=== PATIENT | female | born 1940 | race Caucasian/White ===

== ENCOUNTER 2020-10-10 10:08 | Observation (INO) ==
--- NOTE | 2020-09-02 09:03 | PAT Medication Instructions ---
Medication Instructions Date of Service September 02, 2020 Home Medications calcium carbonate-vitamin D3 [Caltrate 600 plus D] 1 tab PO QAM [id number] [Refresh Optive Alberto-3 (PF)] 1 drp OPHTHALMIC (EYE) TID PRN cyclosporine [Restasis] 1 drp OPHTHALMIC (EYE) Q12H diltiazem HCl [Cartia XT] 120 mg PO QAM docusate sodium [Colace] 100 mg PO QAM PRN Centrum Silver 1 tab PO QAM omeprazole 40 mg PO BID polyethylene glycol 3350 [Miralax] 17 g PO QAM Al hyd-Mg tr-alg ac-sod bicarb [Gaviscon] 1 tab PO UD PRN acetaminophen [Tylenol Extra Strength] 500 mg PO Q6H PRN aspirin [Aspir-81] 81 mg PO QAM peg 400-propylene glycol (PF) [Systane (PF)] 1 drp OPHTHALMIC (EYE) BID PRN sodium chloride [Maggie 128] 1 applic OPHTHALMIC (EYE) HS DO NOT take the morning of surgery calcium carbonate-vitamin D3 [Caltrate 600 plus D] 1 tab PO QAM docusate sodium [Colace] 100 mg PO QAM PRN Centrum Silver 1 tab PO QAM polyethylene glycol 3350 [Miralax] 17 g PO QAM Al hyd-Mg tr-alg ac-sod bicarb [Gaviscon] 1 tab PO UD PRN Take morning of surgery With a small sip of water, OTHERWISE NOTHING TO EAT OR DRINK AFTER MIDNIGHT: [id number] [Refresh Optive Alberto-3 (PF)] 1 drp OPHTHALMIC (EYE) TID PRN (if needed) cyclosporine [Restasis] 1 drp OPHTHALMIC (EYE) Q12H diltiazem HCl [Cartia XT] 120 mg PO QAM omeprazole 40 mg PO BID acetaminophen [Tylenol Extra Strength] 500 mg PO Q6H PRN (okay to take up to 4 hours prior to surgery if needed) aspirin [Aspir-81] 81 mg PO QAM (take as normal unless told otherwise by surgeon) Take evening before surgery [id number]-eoq-shpi65-PF [Refresh Optive Alberto-3 (PF)] 1 drp OPHTHALMIC (EYE) TID PRN (if needed) cyclosporine [Restasis] 1 drp OPHTHALMIC (EYE) Q12H docusate sodium [Colace] 100 mg PO QAM PRN (if needed) omeprazole 40 mg PO BID Al hyd-Mg tr-alg ac-sod bicarb [Gaviscon] 1 tab PO UD PRN (if needed) acetaminophen [Tylenol Extra Strength] 500 mg PO Q6H PRN (if needed) peg 400-propylene glycol (PF) [Systane (PF)] 1 drp OPHTHALMIC (EYE) BID PRN (if needed) sodium chloride [Maggie 128] 1 applic OPHTHALMIC (EYE) HS Other Notes If you have any questions please call us at [phone] or [phone] or [phone] or [phone]
--- NOTE | 2020-09-05 14:22 | Anesthesiology Consultation ---
Date of Service September 05, 2020 Assessment & Plan (1) Encounter for pre-operative examination: - COVID screening: Per assessment on 09/05: Travel screen negative, no known COVID-19 positive contacts or current COVID-19 related symptoms. Patient vaccinated. Surgeon arranging preop COVID testing. Awaiting results. - Hx glidescope intubation: Left TSA (01/17/17): Glidescope#3, ETT 7.0 + PNB at [facility], [place] Chart Review Chart Review: Acceptable Risk for Surgery (pending surgeon-ordered UA) and Patient seen in Pre Admission Testing Teaching & Discussion Pre-Anesthesia Teaching/Discussion Notes: Instructed NPO after midnight before surgery,except medications with 15 cc of water. Medication instructions provided according to the PAT guidelines. History Surgery Operation Date: 10/10/20 09:10 Proposed Procedures p Left Total Knee Arthroplasty - Raphael Renner MD Height/Weight Height: 5 ft 7 in Weight: 75.6 kg Allergies Allergy/AdvReac Type Severity Reaction Status Date / Time No Known Allergies Allergy Unverified 08/16/20 14:20 Medications Home Medications Medication Instructions Recorded Confirmed Last Taken calcium carbonate-vitamin D3 1 tab PO QAM 01/25/20 08/16/20 Unknown [Caltrate 600 plus D] [id number]-[id number]-PF 1 drp OPHTHALMIC (EYE) TID PRN 01/25/20 08/16/20 Unknown [Refresh Optive Alberto-3 (PF)] cyclosporine [Restasis] 1 drp OPHTHALMIC (EYE) Q12H 01/25/20 08/16/20 Unknown diltiazem HCl [Cartia XT] 120 mg PO QAM 01/25/20 08/16/20 Unknown docusate sodium [Colace] 100 mg PO QAM PRN 01/25/20 08/16/20 Unknown bxxppwbkcilh-yzbzrzfb-bcwzcu 1 tab PO QAM 01/25/20 08/16/20 Unknown [Centrum Silver] omeprazole 40 mg PO BID 01/25/20 08/16/20 Unknown polyethylene glycol 3350 [Miralax] 17 g PO QAM 01/25/20 08/16/20 Unknown Al hyd-Mg tr-alg ac-sod bicarb 1 tab PO UD PRN 08/16/20 08/16/20 Unknown [Gaviscon] acetaminophen [Tylenol Extra 500 mg PO Q6H PRN 08/16/20 08/16/20 Unknown Strength] aspirin [Aspir-81] 81 mg PO QAM 08/16/20 08/16/20 Unknown peg 400-propylene glycol (PF) 1 drp OPHTHALMIC (EYE) BID PRN 08/16/20 08/16/20 Unknown [Systane (PF)] sodium chloride [Maggie 128] 1 applic OPHTHALMIC (EYE) HS 08/16/20 08/16/20 Unknown Past Medical History Medical History (Updated 09/05/20 @ 14:37 by Marisol Sanchez) Borderline hypertension Dry eye GERD (gastroesophageal reflux disease) controlled History of malignant melanoma of eye Left eye Hx of esophageal spasm IBS (irritable bowel syndrome) Osteoarthritis Varicose veins of both lower extremities s/p injections Exercise / Class Metabolic Activity III < 4 Walking/Shop/Light housework Past Family History Family History Father Colon cancer Other No family history of adverse response to anesthesia Past Surgical History Surgical History History of appendectomy History of breast biopsy Benign History of cardiac cath 2017 (for chest pain evaluation) > no stents History of colonoscopy History of esophagogastroduodenoscopy (EGD) History of hysterectomy History of left shoulder replacement Left TSA (01/17/17): Glidescope#3, ETT 7.0 + PNB at [facility], [place] History of non-cataract eye surgery left eye melanoma removal History of right shoulder replacement History of tonsillectomy Past Anesthesia History Difficult Airway (Left TSA (01/17/17): Glidescope#3, ETT 7.0 + PNB at [facility], [place]) Social History Smoking Status: Never smoker Do You Dip or Chew Tobacco: No Hx Alcohol Use: No Hx Substance Use: No substance use type: does not use Review of Systems No snoring. Patient denies chest pain, shortness of breath, fever, chills, cough, wheezing, palpitations. Physical Exam Vital Signs VITALS BP 133/75 P 70 TEMP SP02 94%RA RESP 18 PHYSICAL Full cervical extension range of motion. Full TMJ range of motion. TMD 2 finger breaths (small chin) Mallampati Score 3 Dentition: intact, +crown (molars) Lungs: clear throughout to auscultation Cardiac: regular rate and rhythm, no murmurs noted Spine: kyphosis Carotid arteries: negative bruit Extremities: no edema Lab Results Anesthesia Preop Results Results Anesthesia Widget: WBC 3.65 K/uL (4.8-10.8) L 09/05/20 Hgb 12.8 g/dL (12.0-16.0) 09/05/20 Hct 39.3 % (37-47) 09/05/20 Plt 191 K/uL (130-400) 09/05/20 Na 139 mmol/L (136-145) 09/05/20 K 4.2 mmol/L (3.5-5.1) 09/05/20 Cl 106 mmol/L (98-107) 09/05/20 CO2 28 mmol/L (21-32) 09/05/20 BUN 19 mg/dl (7-18) H 09/05/20 Creat 0.72 mg/dl (0.6-1.2) 09/05/20 Glucose Level 159 mg/dl (70-99) H 09/05/20 PT 10.0 Seconds (9.0-12.0) 09/05/20 PTT 26.0 Seconds (21.0-31.0) 09/05/20 INR 1.0 (0.9-1.1) 09/05/20 HA1c 6.0 % (4.5-5.6) H 09/05/20 Blood Type A Positive 09/05/20 Antibody Screen NEGATIVE 09/05/20 Lab Comments: Low WBC > report to be forwarded to PCP for continuity of care Testing Electrocardiogram Date: 09/05/20 Findings: + NSR @ (66) Chest X-Ray Date: 09/05/20 FINDINGS: No pneumothorax. No pleural effusion. No large infiltrates or consolidative lesions are seen. Cardiomediastinal silhouette is within normal limits in size. No significant pulmonary vascular congestion.. Aorta is calcified. Osseous structures: Osteopenia. Degenerative changes of the spine. Bilateral prosthetic shoulder joints are new since prior study. IMPRESSION: No acute pulmonary process. Echocardiogram Date: 06/04/15 EF 60%. No regional wall motion abnormality. Mild MR. RVSP 30 mmHg. No obvious cardiac source of embolus seen. Cardiac Catheterization Date: 12/23/17 Mid LAD 20%, left circumflex distal 20%. The patient's troponin elevation could be secondary to a superficial plaque erosion; there does not appear to be any significant stenosis, which would merit intervention.
--- NOTE | 2020-10-07 22:32 | History & Physical Report ---
Date of Service October 07, 2020 Assessment & Plan (1) Primary osteoarthritis of left knee: Plan: Treatment options discussed with patient. She has failed conservative measures as above. She would like to proceed with surgical intervention. Risks, benefits and alternatives to surgery including but not limited to infection, DVT, pain, stiffness, need for revision surgery, damage to blood vessels, damage to nerves, PE, , were discussed with the patient and they wish to proceed. Plan on left total knee arthroplasty on 10/10/20 at [facility]. Will plan on ASA 81mg BID x 1 mo post op for DVT prophylaxis as well as outpatient PT post discharge. All questions answered. She will follow up post operatively. History of Present Illness Chief Complaint: Left knee pain Primary Care Provider: NO PCP 80 year old female with PMHx significant for GERD, HTN, melanoma, IBS who presents with ongoing left knee pain. Pain interfering with her daily and leisure activities. She has failed conservative measures including anti- inflammatory medications, injections. She would like to proceed with knee replacement. Patient denies headaches, sweats, fevers, chills, double vision, blurred vision, cough, sore throat, dysphagia, chest pain, sob, wheezing, n/v/d/c, numbness, tingling, fatigue, urinary symptoms, mood disorders. ROS posi tive for left knee pain and stiffness. Allergies Allergy/AdvReac Type Severity Reaction Status Date / Time No Known Allergies Allergy Unverified 08/16/20 14:20 Home Medications Medication Instructions Recorded Confirmed Type calcium carbonate 600 mg(1,500 1 tab PO QAM 01/25/20 08/16/20 History mg)-vitamin D3 800 unit chewable tablet (Caltrate 600 plus D) carboxymethyl 0.5 %-glycerin 1 1 drp OPHTHALMIC (EYE) TID PRN 01/25/20 08/16/20 History %-polysorb 80 0.5 %-PF eye dropperette (Refresh Optive Alberto-3 (PF)) cyclosporine 0.05 % eye drops in a 1 drp OPHTHALMIC (EYE) Q12H 01/25/20 08/16/20 History dropperette (Restasis) diltiazem HCl 120 mg 120 mg PO QAM 01/25/20 08/16/20 History capsule,extended release 24 hr (Cartia XT) docusate sodium 100 mg capsule 100 mg PO QAM PRN 01/25/20 08/16/20 History (Colace) echqvnnkmxjh-qjzehhdk-vrunlo tablet 1 tab PO QAM 01/25/20 08/16/20 History omeprazole 40 mg capsule,delayed 40 mg PO BID 01/25/20 08/16/20 History release polyethylene glycol 3350 17 gram 17 g PO QAM 01/25/20 08/16/20 History oral powder packet (Miralax) Al hyd-Mg tr-alg ac-sod bicarb 80 1 tab PO UD PRN 08/16/20 08/16/20 History mg-14.2 mg chewable tablet (Gaviscon) acetaminophen 500 mg capsule 500 mg PO Q6H PRN 08/16/20 08/16/20 History aspirin 81 mg tablet,delayed 81 mg PO QAM 08/16/20 08/16/20 History release peg 400-propylene glycol (PF) 0.4 1 drp OPHTHALMIC (EYE) BID PRN 08/16/20 08/16/20 History %-0.3 % eye drops in a dropperette (Systane (PF)) sodium chloride 5 % eye ointment 1 applic OPHTHALMIC (EYE) HS 08/16/20 08/16/20 History (Maggie 128) Past Med/Surg History Medical History (Updated 10/07/20 @ 22:33 by Iam Mendez) Borderline hypertension Dry eye GERD (gastroesophageal reflux disease) controlled History of malignant melanoma of eye Left eye Hx of esophageal spasm IBS (irritable bowel syndrome) Osteoarthritis Varicose veins of both lower extremities s/p injections Surgical History History of appendectomy History of breast biopsy Benign History of cardiac cath 2017 (for chest pain evaluation) > no stents History of colonoscopy History of esophagogastroduodenoscopy (EGD) History of hysterectomy History of left shoulder replacement Left TSA (01/17/17): Glidescope#3, ETT 7.0 + PNB at [facility] History of non-cataract eye surgery left eye melanoma removal History of right shoulder replacement History of tonsillectomy Family History Father Colon cancer Other No family history of adverse response to anesthesia Social History (Updated 08/16/20 @ 14:45 by Naomi Aguilar RN) Smoking Status: Never smoker Second Hand Exposure: Yes (FATHER SMOKED/SPOUSE SMOKED); Hx Alcohol Use: No Hx Substance Use: No Preferred Language: Ukrainian Communication Ability: Effective Tax Services Intern Required: No Beliefs That Will Affect Care: None Current Living Situation: Alone current occupational status: retired Feels Safe at Home: Yes Assistive Devices: Glasses Review of Systems All systems reviewed & are unremarkable except as noted in HPI & below Physical Exam Constitutional: well developed and well nourished; no acute distress Eyes: PERRL, conjunctivae normal, anicteric sclerae ENMT: external ear and nose normal, oropharynx normal Neck: trachea midline, no thyromegaly Respiratory: normal respiratory effort, lungs clear to auscultation Cardiovascular: RRR, no murmur, no edema Musculoskeletal: Left knee: ROM 15-100 degrees. Varus alignment. Tenderness medial joint line, mild effusion. Moderate crepitation. Stable to valgus and varus stress, positive Yajaira's. Skin: no rashes, warm and dry Neurologic: patellar DTR's 2+ bilat, sensation intact Psychiatric: A+Ox3, euthymic affect Results & Data ([facility]) Diagnostic Findings Left knee radiographs: Tricompartmental degenerative changes with severe medial compartment OA, bone on bone medial compartment. Periarticular osteophyte formation and subchondral sclerosis.
[~2020-10-10 10:08] MED LIST: ACETAMINOPHEN 500 MG TAB PO SCH; BUPIVACAINE 0.5 % 5 MG/1 ML PF 10ML VIAL ONE; CeleBREX 200 MG CAP PO SCH; EPINEPHrine INJ 1 MG/ML AMP ONE; FAMOTIDINE 20 MG TAB PO SCH; GABAPENTIN 300 MG CAP PO SCH; LR 500ML BOLUS, THEN 15ML/HR IV SCH; METOCLOPRAMIDE HCL 10 MG TABLET PO SCH; ROPIVACAINE 0.5% 5 MG/ML 30 ML VIAL ONE; ROPIVACAINE 0.5% HCL/PF 150 MG, BUPIVACAINE 0.75% MPF 20 ML, EPINEPHrine 30MG/30ML (OR ... INSTIL SCH; TRANEXAMIC ACID 1,000 MG **IV Intra-op IV SCH; TRANEXAMIC ACID 1,000 MG **IV Pre-op IV SCH; ceFAZolin 1000MG 1,000 MG/7.5 ML SYR IV SCH; dexAMETHasone 4 MG TAB PO SCH
[2020-10-10] MEDS ORDERED: MEPERIDINE HCL 25 MG/ML CARP/VIAL IV PRN (10:22)
[2020-10-10] MEDS ORDERED: fentaNYL citrate 100 MCG/2 ML VIAL IV PRN (10:22)
[2020-10-10] MEDS ORDERED: ONDANSETRON INJ 2 MG/ML 2 ML VIAL IV PRN ×2 (10:22→17:34)
[2020-10-10] MEDS ORDERED: PHENYLEPHRINE 100MCG/ML 5ML SYR IV PRN (10:22)
[2020-10-10] MEDS ORDERED: ATROPINE SULFATE 0.1 MG/ML 10ML SYR IV PRN (10:22)
[2020-10-10] MEDS ORDERED: LABETALOL HCL IV 5 MG/ML 20ML IV PRN (10:22)
[2020-10-10] MEDS ORDERED: HYDROmorphone INJ 1 MG/ML SYRINGE IV PRN (10:22)
[2020-10-10] MEDS ORDERED: ePHEDrine sulfate 50 MG/ML AMP IV PRN (10:22)
--- NOTE | 2020-10-10 11:27 | History & Physical Bridge Note ---
Date of Service October 10, 2020 History & Physical Bridge Note I have examined the patient, reviewed the History & Physical and in the interval since the performance of the History & Physical I have noted the following changes of clinical significance: no changes noted
[2020-10-10] MEDS ORDERED: ORTHO JOINT ANESTHETIC ONE (12:41)
[2020-10-10] MEDS ORDERED: LIDOCAINE 2% 2 ML VIAL/AMP(20MG/ML) INFIL ONE (13:03)
[2020-10-10] MEDS ORDERED: MIDAZOLAM HCL 1 MG/ML 2ML VIAL ONE (13:03)
[2020-10-10] MEDS ORDERED: PROPOFOL IV EMULSION 10 MG/ML 20 ML VIAL IV ONE (13:03)
[2020-10-10] MEDS ORDERED: BUPIVACAINE 0.25% 30 ML VIAL ONE (13:26)
[2020-10-10] MEDS ORDERED: PHENYLEPHRINE 100MCG/ML 5ML SYR ONE (14:57)
[2020-10-10] MEDS ORDERED: KETAMINE 50 MG/5 ML SYRINGE ONE (14:57)
[2020-10-10] MEDS ORDERED: GLYCOPYRROLATE 0.2 MG/ML VIAL ONE (14:57)
--- NOTE | 2020-10-10 16:19 | Operative Report ---
Post Operative Report Pre & Post Diagnosis Operation Date: 10/10/20 12:35 Pre-Op Diagnosis: Unilateral Primary Osteoarthritis, Left Knee Post-Op Diagnosis: Unilateral Primary Osteoarthritis, Left Knee I identified the patient and participated in the time-out.: Yes Procedure Operation Date: 10/10/20 12:35 Actual Procedures p Left Total Knee Arthroplasty(Left) - Raphael Renner MD Surgeon Raphael Renner MD Deckhand Sponge Boat Rolando LIU Estimated Blood Loss 5 Findings Consistent with Post-Op Diagnosis Specimens Bone cuts Drains 2 Hemovac Anesthesia Type MAC Spinal Regional Complications None Disposition Disposition: Recovery Room Indications 80-year-old female with severe bilateral knee osteoarthritis left greater than right varus knees arpu-gb-igib medial compartment moderate patellofemoral OA left knee Description of Procedure Patient was taken to the operating room placed supine on the operating table and anesthetized under spinal MAC regional anesthesia. Exam under anesthesia demonstrated range of motion of 15 through 100 degrees varus knee no pseudolaxity no instability. A pneumatic tourniquet was placed about the thigh of the left lower extremity. The left lower extremity was prepped and draped in usual fashion. The leg was elevated exsanguinated with an Esmarch bandage and the pneumatic was raised to 300 mm mercury. An anterior incision was made across the left knee. The skin was incised longitudinally subcutaneous flaps were elevated and an incision was made through the medial retinaculum extending up into the mid third of the quadriceps tendon and extended down to the medial tibial tubercle. Intra-articular findings demonstrated medial compartment and patellofemoral osteoarthritis [id number] medial compartment tricompartmental osteophytes the odd facet medial side was down to bone and circumferential osteophytes around the patella. The knee was exposed by excising the infrapatellar fat pad, excising the meniscal remnants and anterior cruciate ligament. Any inflamed synovial tissue was resected. The fat pad over the anterior femur was resected for placement of the component in that area. The lateral synovial bands were release. The femur was exposed. The custom femoral cutting block was pinned in position. The distal femoral cutting block was applied. The distal femoral cut was made with the oscillating saw. The size 9, 4-in-1 cutting block was placed. The anterior and posterior chamfer cuts were made. The knee was extended and a subperiosteal peel lateral release was performed around the patella. The patella width was measured and width was reproduced using freehand cut technique. The 35 x 9 millimeter symmetrical patella was used. 3 drill holes are made for the pegs. The tibia was exposed. A custom tibial cutting block was positioned however was not satisfied with the alignment and I used an external tibial cutting guide placing a perpendicular to the long axis of the tibia and placing the appropriate amount of posterior slope and then and the proximal cut was made with the oscillating saw. All osteophytes were resected. The lamina brake repairer bus was used to assess ligamentous balance and the ligaments were balanced in extension and flexion. This required medial and posterior medial releases in the anterior MCL was pie crusted. Sizing blocks used in extension flexion and the gaps were balanced and size 14 mm was chosen. The tibia was reexposed and measured for a size F tibial component. This was externally rotated in line with the tibial tubercle and the fixation pins were drilled. The proximal tibia was fashioned with the drill and punch. The size 9 CR left femoral trial was inserted. The trial MC inserts wer e used. The 14 mm insert gave balanced ligaments through full range of motion. The patella tracked with some slight lateral tilt so I did an extra-articular lateral release leaving the synovium intact and patella tracks centrally. the trials were removed. The orthomix anesthetic cocktail was injected per protocol. The knee was then copiously irrigated with pulsatile lavage saline solution. The final components were cemented. The final components were Bob [employer] persona size 9 left CR femoral component, left F tibial component, 14 mm capital MC polyethylene insert, 35 x 9 patella. After the cement cured with the knee in full extension the Betadine soak was used per protocol. The knee joint was copiously irrigated with saline solution. 2 drains were brought out laterally and connected to a Hemovac. The quadriceps tendon and medial retinaculum were closed with interrupted gaeafd-wy-cmxmc #1 Vicryl sutures. The knee was taken through a full range of motion and repair was secure. Range of motion 0 to 130 degrees. The subcutaneous tissues were closed with 2-0 Vicryl sutures and skin was closed with viktoria. Sterile dressings were applied and the patient tolerated the procedure well. Rolando LIU my physician automotive service assistant, assisted in soft tissue retraction instrument management leg positioning the closure and will participate in the postoperative care of the patient. I attest to the content of the Intraoperative Record and any orders documented therein. Any exceptions are noted below.
--- NOTE | 2020-10-10 17:19 | Anesthesiology Progress Note ---
Date of Service October 10, 2020 Anesthesia Post Procedure Vital Signs Vital Signs: Temp Pulse Pulse Resp BP BP Pulse Ox 10/10/20 17:15 36.3 C L 80 15 116/63 95 10/10/20 17:05 78 17 115/54 L 96 10/10/20 16:55 87 20 114/59 L 95 10/10/20 16:49 36.4 C L 94 H 17 104/48 L 94 10/10/20 10:41 36.7 C 97 H 20 158/78 H 97 Transfer of Care Handoff Completed per policy Notes Mental Status: alert / awake / arousable and participated in evaluation Nausea / Vomiting: adequately controlled Pain: adequately controlled Airway Patency, RR, SpO2: stable & adequate BP & HR: stable & adequate Hydration State: stable & adequate Neuraxial Anesthesia: was administered and sensory block is resolving Anesthetic Complications: no major complications apparent and Pt Satisfied with anesthetic care
--- NOTE | 2020-10-10 17:21 | XRay Report ---
XR knee LT 1 or 2V routine CLINICAL HISTORY: Postoperative evaluation. COMPARISON: None FINDINGS: Alignment of the total left knee arthroplasty is anatomic. There is no periprosthetic frac ture or unexpected radiopaque foreign body. Drains and skin viktoria. IMPRESSION: Expected findings following total left knee arthroplasty. ACT 112: Negative or not required by law. Electronically signed by: Gael Herrera M.D. 10/10/2020 5:19 PM
[2020-10-10] MEDS ORDERED: MAGNESIUM HYDROXIDE SUSP 30 ML UDC PO PRN (17:34)
[2020-10-10] MEDS ORDERED: HYDROmorphone INJ 0.5 MG/0.5 ML SYR IV PRN (17:34)
[2020-10-10] MEDS ORDERED: NALOXONE HCL 0.4 MG/1 ML VIAL/CARP IV PRN (17:34)
[2020-10-10] MEDS ORDERED: bisacodyL 10 MG SUPP PR PRN (17:34)
[2020-10-10] MEDS ORDERED: NON-FORMULARY MEDICATION (Peg 400-Propylene Glycol (Pf) [Systane (Pf)] 0.4-0.3 % Dropperet OP PRN (17:34)
[2020-10-10] MEDS ORDERED: oxyCODONE HCL IR 5 MG TAB (IMMEDIATE RELEASE) PO PRN (17:34)
[2020-10-10] MEDS ORDERED: ARTIFICIAL TEARS OP PRN (17:48)
[2020-10-10] MEDS: SODIUM CHLORIDE 0.9% 1000ML 1,000 ML IV SCH (17:50)
[2020-10-10] MEDS: SODIUM CHLORIDE 5% (MURO) OP OINT 3.5 GM TUBE OP SCH (19:51)
[2020-10-10] MEDS: ASPIRIN 81 MG ECTAB PO SCH (19:51)
[2020-10-10] MEDS: DOCUSATE SODIUM 100 MG CAP PO SCH (19:52)
[2020-10-10] MEDS: ceFAZolin 1000MG 1,000 MG/7.5 ML SYR IV SCH (20:45)
[2020-10-10] MEDS: ACETAMINOPHEN 500 MG TAB PO SCH (20:45)
[2020-10-11] MEDS: ceFAZolin 1000MG 1,000 MG/7.5 ML SYR IV SCH (05:48)
[2020-10-11] MEDS: ACETAMINOPHEN 500 MG TAB PO SCH ×3 (05:48→21:00)
[2020-10-11 06:17] LABS: Hematocrit (blood only) 37.7 % (37-47); Hemoglobin 12.3 g/dL (12.0-16.0); Mean Corpuscular Hemoglobin 30.1 pg (25-34); Mean Corpuscular Hgb Conc 32.6 g/dL (32-36); Mean Corpuscular Volume 92.4 fL (80-100); Mean Platelet Volume 10.2 fL (7.4-10.4); Platelet Count 176 K/uL (130-400); RDW Coefficient of Variation 13.4 % (11.5-14.5); RDW Standard Deviation 45.5 fL (36.4-46.3); Red Blood Count 4.08 M/uL (4.2-5.4); White Blood Count 9.09 K/uL (4.8-10.8)
[2020-10-11 06:53] LABS: BUN Creatinine Ratio 20.3 (10-20); Calcium 8.9 mg/dl (8.5-10.1); Creatinine Clr Calc Pharmacy 72.7 ml/min; Est GFR (African American) 99.9 ml/min; Est GFR (Non-African American) 86.2 ml/min
[2020-10-11] MEDS: SODIUM CHLORIDE 0.9% 1000ML 1,000 ML IV SCH (07:22)
--- NOTE | 2020-10-11 07:37 | Orthopedic Progress Note ---
Date of Service October 11, 2020 Assessment & Plan (1) Primary osteoarthritis of left knee: Plan: Postop day 1 status post left total knee arthroplasty. PT/OT protocols. Weightbearing as tolerated. DVT prophylaxis-aspirin p.o. twice daily, SCDmichael, ZARINA carlos. Pain management as written. DC planning-patient is planning for outpatient PT upon discharge. Admission and Anticipated Discharge Date Admission Date: October 10, 2020 Subjective Postop day 1 Patient is awake and alert sitting up in bed. No complaints this morning. Pain is controlled. Denies shortness of breath, chest pain, lightheadedness. Physical Exam Physical Exam: Dressings are clean, dry, and intact. Calves are soft and nontender. Neurovascular is intact. Toes are mobile. She has good dorsiflexion and plantarflexion of her left foot. Hemovac drainage was 125 mL from the previous shift. Results & Data ([facility]) Vital Signs (Past 12 Hours) Vital Signs Temp Pulse Pulse Resp BP Pulse Ox 10/11/20 03:08 36.5 C 53 L 16 161/73 H 100 10/10/20 21:51 36.5 C 75 16 132/73 98 10/10/20 20:04 36.5 C 64 18 130/76 99 Laboratory Results Laboratory Results WBC 9.09 K/uL (4.8-10.8) 10/11/20 05:42 RBC 4.08 M/uL (4.2-5.4) L 10/11/20 05:42 Hgb 12.3 g/dL (12.0-16.0) 10/11/20 05:42 Hct 37.7 % (37-47) 10/11/20 05:42 MCV 92.4 fL (80-100) 10/11/20 05:42 MCH 30.1 pg (25-34) 10/11/20 05:42 MCHC 32.6 g/dL (32-36) 10/11/20 05:42 RDW Std Deviation 45.5 fL (36.4-46.3) 10/11/20 05:42 RDW Coeff of Arturo 13.4 % (11.5-14.5) 10/11/20 05:42 Plt Count 176 K/uL (130-400) 10/11/20 05:42 MPV 10.2 fL (7.4-10.4) 10/11/20 05:42 Sodium 139 mmol/L (136-145) 10/11/20 05:42 Potassium 4.0 mmol/L (3.5-5.1) 10/11/20 05:42 Chloride 108 mmol/L (98-107) H 10/11/20 05:42 Carbon Dioxide 29 mmol/L (21-32) 10/11/20 05:42 Anion Gap 2.0 (3-11) L 10/11/20 05:42 BUN 12 mg/dl (7-18) 10/11/20 05:42 Creatinine 0.61 mg/dl (0.6-1.2) 10/11/20 05:42 Est Cr Clr Drug Dosing 72.7 ml/min 10/11/20 05:42 Est GFR ( Amer) 99.9 ml/min 10/11/20 05:42 Est GFR (Non-Af Amer) 86.2 ml/min 10/11/20 05:42 BUN/Creatinine Ratio 20.3 (10-20) H 10/11/20 05:42 Glucose 143 mg/dl (70-99) H 10/11/20 05:42 Calcium 8.9 mg/dl (8.5-10.1) 10/11/20 05:42 COVID-19 Eval Order Covid19 IDNow [facility] 10/10/20 10:20 SARS-CoV-2, RNA, NAAT NEGATIVE (NEGATIVE) 10/10/20 10:20 Impressions Knee X-Ray 10/10/20 17:00 XR knee LT 1 or 2V routine CLINICAL HISTORY: Postoperative evaluation. COMPARISON: None FINDINGS: Alignment of the total left knee arthroplasty is anatomic. There is no periprosthetic fracture or unexpected radiopaque foreign body. Drains and skin viktoria. IMPRESSION: Expected findings following total left knee arthroplasty. ACT 112: Negative or not required by law. Electronically signed by: Gael Herrera M.D. 10/10/2020 5:19 PM
[2020-10-11] MEDS: MULTIVITAMIN TAB PO SCH (08:27)
[2020-10-11] MEDS: PANTOprazole 40 MG TAB PO SCH (08:27)
[2020-10-11] MEDS: ASPIRIN 81 MG ECTAB PO SCH ×2 (08:27→20:59)
[2020-10-11] MEDS: DOCUSATE SODIUM 100 MG CAP PO SCH ×2 (08:27→21:00)
[2020-10-11] MEDS: POLYETHYLENE (MIRALAX) 17 GM PACK PO SCH (08:28)
[2020-10-11] MEDS: CALCIUM 600MG + VIT D 400 IU TAB PO SCH (08:28)
[2020-10-11] MEDS: dilTIAZem HCL 120 MG CAPCR PO SCH (08:28)
--- NOTE | 2020-10-11 11:23 | Hospitalist Consultation ---
Date of Consultation October 11, 2020 Assessment & Plan (1) Primary osteoarthritis of left knee: Patient is now status post total knee arthroplasty, POD #1. Continue management per primary service (2) GERD (gastroesophageal reflux disease): Patient is on omeprazole 40 mg daily at home, okay to continue PPI here with pantoprazole. (3) IBS (irritable bowel syndrome): Continue docusate, MiraLAX as needed. Patient currently has no complaints (4) Borderline hypertension: Last blood pressure documented 126/60 with pulse 60. Cartia XT 120 mg daily is the only cardiac medication on the patient's list, okay to continue as ordered. Thank you for the consult, will continue to follow while patient remains in the hospital. History of Present Illness Reason for Consultation: Medical management Requesting Physician: Jud Attending Physician: Raphael Renner MD History of Present Illness This is a 80-year-old female with past medical history of IBS, GERD, reflux, hypercholesterolemia that presented electively yesterday for a right total knee arthroplasty. This was performed yesterday without incident. Our service was consulted for medical management. Patient was seen in bed. She is awake and alert. She was in no distress and was otherwise pleasant and had no complaints. She denies any fevers chills nausea vomiting diarrhea constipation. Allergies Allergy/AdvReac Type Severity Reaction Status Date / Time No Known Allergies Allergy Verified 10/10/20 10:39 Home Medications Medication Instructions Recorded Confirmed Type calcium carbonate 600 mg(1,500 1 tab PO QAM 01/25/20 10/10/20 History mg)-vitamin D3 800 unit chewable tablet (Caltrate 600 plus D) carboxymethyl 0.5 %-glycerin 1 1 drp OPHTHALMIC (EYE) TID PRN 01/25/20 10/10/20 History %-polysorb 80 0.5 %-PF eye dropperette (Refresh Optive Alberto-3 (PF)) cyclosporine 0.05 % eye drops in a 1 drp OPHTHALMIC (EYE) Q12H 01/25/20 10/10/20 History dropperette (Restasis) diltiazem HCl 120 mg 120 mg PO QAM 01/25/20 10/10/20 History capsule,extended release 24 hr (Cartia XT) docusate sodium 100 mg capsule 100 mg PO QAM PRN 01/25/20 10/10/20 History (Colace) njapklquvtxj-trxhdzfn-tkqxqq tablet 1 tab PO QAM 01/25/20 10/10/20 History omeprazole 40 mg capsule,delayed 40 mg PO BID 01/25/20 10/10/20 History release polyethylene glycol 3350 17 gram 17 g PO QAM 01/25/20 10/10/20 History oral powder packet (Miralax) Al hyd-Mg tr-alg ac-sod bicarb 80 1 tab PO UD PRN 08/16/20 10/10/20 History mg-14.2 mg chewable tablet (Gaviscon) acetaminophen 500 mg capsule 500 mg PO Q6H PRN 08/16/20 10/10/20 History aspirin 81 mg tablet,delayed 81 mg PO QAM 08/16/20 10/10/20 History release peg 400-propylene glycol (PF) 0.4 1 drp OPHTHALMIC (EYE) BID PRN 08/16/20 10/10/20 History %-0.3 % eye drops in a dropperette (Systane (PF)) sodium chloride 5 % eye ointment 1 applic OPHTHALMIC (EYE) HS 08/16/20 10/10/20 History (Maggie 128) Patient History Medical History (Updated 10/11/20 @ 11:27 by Sheldon Mares DO) Borderline hypertension Dry eye GERD (gastroesophageal reflux disease) controlled History of malignant melanoma of eye Left eye Hx of esophageal spasm IBS (irritable bowel syndrome) Osteoarthritis Varicose veins of both lower extremities s/p injections Surgical History History of appendectomy History of breast biopsy Benign History of cardiac cath 2017 (for chest pain evaluation) > no stents History of colonoscopy History of esophagogastroduodenoscopy (EGD) History of hysterectomy History of left shoulder replacement Left TSA (01/17/17): Glidescope#3, ETT 7.0 + PNB at [facility] History of non-cataract eye surgery left eye melanoma removal History of right shoulder replacement History of tonsillectomy Family History Father Colon cancer Other No family history of adverse response to anesthesia Social History (Reviewed 10/11/20 @ 11:21 by CHERELLE Brody Smoking Status: Never smoker Second Hand Exposure: No; Do You Dip or Chew Tobacco: No; Hx Alcohol Use: No Hx Substance Use: No Preferred Language: Montserratian Communication Ability: Effective New Client Banking Services Clerk Required: No Beliefs That Will Affect Care: None marital status: / Current Living Situation: Alone current occupational status: retired Other Information That Helps Us Care for You: No Feels Safe at Home: Yes Safety Concerns: Feels Safe At This Time Assistive Devices: Glasses and Walker Review of Systems Constitutional: no fever, no chills, no weakness, no weight loss and no weight gain Eyes: as per Subjective / HPI Respiratory: no cough, no chest congestion, no dyspnea and no dyspnea on exertion Cardiovascular: no chest pain, no orthopnea, no palpitations, no lightheadedness and no edema Gastrointestinal: no abdominal pain, no nausea, no vomiting, no constipation and no diarrhea/loose stools Genitourinary: no dysuria, no difficulty urinating, no urinary frequency, no urinary hesitancy, no urinary urgency and no flank pain Musculoskeletal: no back pain, no neck pain, no joint pain, no stiffness and no myalgia Integumentary: no rash Neurologic: no gait abnormality, no unsteadiness, no falls and no generalized weakness Physical Exam Constitutional: cooperative; no acute distress Neck: trachea midline, no thyromegaly Respiratory: normal respiratory effort Auscultation: lungs clear to auscultation bilaterally; no crackles, no rales, no rhonchi and no wheezes Cardiovascular: Rate/Rhythm: regular rate and regular rhythm Heart Sounds: normal S1 and normal S2 Gastrointestinal (Abdomen): Inspection/Auscultation: abdomen normal to inspection Percussion/Palpation: abdomen soft; abdomen nontender, no guarding, abdomen not rigid and no hepatosplenomegaly Musculoskeletal: Right leg with surgical dressings, did not disturb. Skin: no rashes, warm and dry Results & Data Results & Data ([facility]) Vital Signs (Past 12 Hours) Vital Signs Temp Pulse Pulse Resp BP Pulse Ox 10/11/20 07:43 36.6 C 62 16 126/62 98 10/11/20 03:08 36.5 C 53 L 16 161/73 H 100 Laboratory Results Laboratory Results WBC 9.09 K/uL (4.8-10.8) 10/11/20 05:42 RBC 4.08 M/uL (4.2-5.4) L 10/11/20 05:42 Hgb 12.3 g/dL (12.0-16.0) 10/11/20 05:42 Hct 37.7 % (37-47) 10/11/20 05:42 MCV 92.4 fL (80-100) 10/11/20 05:42 MCH 30.1 pg (25-34) 10/11/20 05:42 MCHC 32.6 g/dL (32-36) 10/11/20 05:42 RDW Std Deviation 45.5 fL (36.4-46.3) 10/11/20 05:42 RDW Coeff of Arturo 13.4 % (11.5-14.5) 10/11/20 05:42 Plt Count 176 K/uL (130-400) 10/11/20 05:42 MPV 10.2 fL (7.4-10.4) 10/11/20 05:42 Sodium 139 mmol/L (136-145) 10/11/20 05:42 Potassium 4.0 mmol/L (3.5-5.1) 10/11/20 05:42 Chloride 108 mmol/L (98-107) H 10/11/20 05:42 Carbon Dioxide 29 mmol/L (21-32) 10/11/20 05:42 Anion Gap 2.0 (3-11) L 10/11/20 05:42 BUN 12 mg/dl (7-18) 10/11/20 05:42 Creatinine 0.61 mg/dl (0.6-1.2) 10/11/20 05:42 Est Cr Clr Drug Dosing 72.7 ml/min 10/11/20 05:42 Est GFR ( Amer) 99.9 ml/min 10/11/20 05:42 Est GFR (Non-Af Amer) 86.2 ml/min 10/11/20 05:42 BUN/Creatinine Ratio 20.3 (10-20) H 10/11/20 05:42 Glucose 143 mg/dl (70-99) H 10/11/20 05:42 Calcium 8.9 mg/dl (8.5-10.1) 10/11/20 05:42 COVID-19 Eval Order Covid19 IDNow [facility] 10/10/20 10:20 SARS-CoV-2, RNA, NAAT NEGATIVE (NEGATIVE) 10/10/20 10:20 Impressions Knee X-Ray 10/10/20 17:00 XR knee LT 1 or 2V routine CLINICAL HISTORY: Postoperative evaluation. COMPARISON: None FINDINGS: Alignment of the total left knee arthroplasty is anatomic. There is no periprosthetic fracture or unexpected radiopaque foreign body. Drains and skin viktoria. IMPRESSION: Expected findings following total left knee arthroplasty. ACT 112: Negative or not required by law. Electronically signed by: Gael Herrera M.D. 10/10/2020 5:19 PM PG Care Time/CCT Total # of Minutes Spent Total Time Spent with Patient: Total time spent is greater than 50% in coordination of care (as documented) at patient's floor/unit and/or counseling patient: Coding Level of Care Code 08711 Inpt Consult Level 3 Diagnoses Primary osteoarthritis of left knee M17.12 GERD (gastroesophageal reflux disease) K21.9 IBS (irritable bowel syndrome) K58.9 Borderline hypertension R03.0
[2020-10-11] MEDS: SODIUM CHLORIDE 5% (MURO) OP OINT 3.5 GM TUBE OP SCH (20:58)
[2020-10-12] MEDS: ACETAMINOPHEN 500 MG TAB PO SCH (05:03)
--- NOTE | 2020-10-12 07:42 | Orthopedic Progress Note ---
Date of Service October 12, 2020 Assessment & Plan (1) Primary osteoarthritis of left knee: Plan: Postop day 2 status post left total knee arthroplasty. PT/OT protocols. Weightbearing as tolerated. DVT prophylaxis-aspirin p.o. twice daily, SCDs, ZARINA carlos. Pain management as written. DC planning-patient is planning for outpatient PT upon discharge. Plan for discharge to home today. Admission and Anticipated Discharge Date Admission Date: October 10, 2020 Subjective Postop day 2 Patient sitting up in bed and getting ready to eat her breakfast. States that she is having a little bit more soreness today and having more trouble doing SLRs. Discussed that that is par for the course and she should not worry. No other complaints today. Denies shortness of breath, chest pain, lightheadedness. Patient is hoping to go home today. Physical Exam Physical Exam: Donnie dressing is clean, dry, and intact. Calves are soft nontender. Neurovascular is intact. Toes are mobile. Results & Data ([facility]) Vital Signs (Past 12 Hours) Vital Signs Temp Pulse Resp BP Pulse Ox 10/12/20 07:22 36.4 C L 53 L 16 145/76 H 97 10/11/20 22:25 36.8 C 60 18 121/72 97
[2020-10-12] MEDS: ASPIRIN 81 MG ECTAB PO SCH (08:31)
[2020-10-12] MEDS: MULTIVITAMIN TAB PO SCH (08:33)
[2020-10-12] MEDS: CALCIUM 600MG + VIT D 400 IU TAB PO SCH (08:33)
[2020-10-12] MEDS: DOCUSATE SODIUM 100 MG CAP PO SCH (08:33)
[2020-10-12] MEDS: PANTOprazole 40 MG TAB PO SCH (08:33)
[2020-10-12] MEDS: dilTIAZem HCL 120 MG CAPCR PO SCH (08:35)
[2020-10-12] MEDS: POLYETHYLENE (MIRALAX) 17 GM PACK PO SCH (08:36)
--- NOTE | 2020-10-12 11:01 | Hospitalist Progress Note ---
Date of Service October 12, 2020 Assessment & Plan (1) Primary osteoarthritis of left knee: Plan: POD #1 left total knee arthroplasty Anticipated discharge today (2) Borderline hypertension: Plan: Hemodynamically stable Continue home diltiazem on discharge Outpatient follow-up (3) IBS (irritable bowel syndrome): Plan: No abdominal pain or diarrhea Continue docusate and MiraLAX as needed (4) GERD (gastroesophageal reflux disease): Plan: No reflux type complaints today Continue omeprazole on discharge home Thank you for including us in the care of this patient. We will sign off at this time. Agree with discharge home from a medical standpoint. Admission and Anticipated Discharge Date Admission Date: October 10, 2020 Subjective Medical consult for medical management. Status post left total knee arthroplasty. Started to have more pain in the lower extremity secondary to surgery. Orthopedics aware. Good sensation on exam. Good mobility. Patient able to walk in the hallways. No fever, chills, sweats, rigors. No other acute complaints. Review of Systems Review of Systems: All systems reviewed & are unremarkable except as noted in Subjective Physical Exam Physical Exam: GENERAL : No acute distress EYES: No icterus, gaze conjugate NOSE: No evidence of epistaxis MOUTH: No lesions or candidiasis NECK: Supple LUNGS: CTA B/L, no wheezes, rales or rhonchi HEART: Regular, rate controlled ABDOMEN: Soft, NT, ND, BS Present EXTREMITIES: No LE edema, pedal pulses intact. Dressing dry and intact to the left knee. NEURO: A&OX3 Results & Data Results & Data ([facility]) Vital Signs (Past 12 Hours) Vital Signs Temp Pulse Resp BP Pulse Ox 10/12/20 08:35 58 L 123/70 10/12/20 07:22 36.4 C L 53 L 16 145/76 H 97 Laboratory Results 10/11/20 05:42 10/11/20 05:42 PG Care Time/CCT Total # of Minutes Spent Total Time Spent with Patient: Total time spent is greater than 50% in coordination of care (as documented) at patient's floor/unit and/or counseling patient: 20 minutes Coding Level of Care Code 16511 Inpt Consult Level 1 Diagnoses Primary osteoarthritis of left knee M17.12 Borderline hypertension R03.0 IBS (irritable bowel syndrome) K58.9 GERD (gastroesophageal reflux disease) K21.9 Time Spent (min) 20
--- NOTE | 2020-10-16 09:28 | Discharge Summary ---
Date of Service October 16, 2020 Admission HPI Per Admitting Provider 80 year old female with PMHx significant for GERD, HTN, melanoma, IBS who presents with ongoing left knee pain. Pain interfering with her daily and leisure activities. She has failed conservative measures including anti- inflammatory medications, injections. She would like to proceed with knee replacement. Patient denies headaches, sweats, fevers, chills, double vision, blurred vision, cough, sore throat, dysphagia, chest pain, sob, wheezing, n/v/d/c, numbness, tingling, fatigue, urinary symptoms, mood disorders. ROS positive for left knee pain and stiffness. Admission Exam Per Admitting Provider Physical Exam Constitutional: well developed and well nourished; no acute distress Eyes: PERRL, conjunctivae normal, anicteric sclerae ENMT: external ear and nose normal, oropharynx normal Neck: trachea midline, no thyromegaly Respiratory: normal respiratory effort, lungs clear to auscultation Cardiovascular: RRR, no murmur, no edema Musculoskeletal: Left knee: ROM 15-100 degrees. Varus alignment. Tenderness medial joint line, mild effusion. Moderate crepitation. Stable to valgus and varus stress, positive Yajaira's. Skin: no rashes, warm and dry Neurologic: patellar DTR's 2+ bilat, sensation intact Psychiatric: A+Ox3, euthymic affect Principal Diagnosis Left Knee Osteoarthritis Discharge Data Allergies Allergy/AdvReac Type Severity Reaction Status Date / Time No Known Allergies Allergy Verified 10/10/20 10:39 Consultations 10/05/20 16:20 Consult Hospitalist Routine Procedures Performed Operation Date: 10/10/20 12:35 Actual Procedures p Left Total Knee Arthroplasty(Left) - Raphael Renner MD Ordered Studies 10/10/20 05:00 US - OR guided needle placemen Routine Hospital Course (1) Primary osteoarthritis of left knee: Assessment & Plan (1) Primary osteoarthritis of left knee: Plan: Postop day 1 status post left total knee arthroplasty. PT/OT protocols. Weightbearing as tolerated. DVT prophylaxis-aspirin p.o. twice daily, SCDs, ZARINA carlos. Pain management as written. DC planning-patient is planning for outpatient PT upon discharge. Admission and Anticipated Discharge Date Admission Date: October 10, 2020 Subjective Postop day 1 Patient is awake and alert sitting up in bed. No complaints this morning. Pain is controlled. Denies shortness of breath, chest pain, lightheadedness. Physical Exam Physical Exam: Dressings are clean, dry, and intact. Calves are soft and nontender. Neurovascular is intact. Toes are mobile. She has good dorsiflexion and plantarflexion of her left foot. Hemovac drainage was 125 mL from the previous shift. Results & Data ([facility]) Vital Signs (Past 12 Hours) Vital Signs Temp Pulse Pulse Resp BP Pulse Ox 10/11/20 03:08 36.5 C 53 L 16 161/73 H 100 10/10/20 21:51 36.5 C 75 16 132/73 98 10/10/20 20:04 36.5 C 64 18 130/76 99 Laboratory Results Laboratory Results WBC 9.09 K/uL (4.8-10.8) 10/11/20 05:42 RBC 4.08 M/uL (4.2-5.4) L 10/11/20 05:42 Hgb 12.3 g/dL (12.0-16.0) 10/11/20 05:42 Hct 37.7 % (37-47) 10/11/20 05:42 MCV 92.4 fL (80-100) 10/11/20 05:42 MCH 30.1 pg (25-34) 10/11/20 05:42 MCHC 32.6 g/dL (32-36) 10/11/20 05:42 RDW Std Deviation 45.5 fL (36.4-46.3) 10/11/20 05:42 RDW Coeff of Arturo 13.4 % (11.5-14.5) 10/11/20 05:42 Plt Count 176 K/uL (130-400) 10/11/20 05:42 MPV 10.2 fL (7.4-10.4) 10/11/20 05:42 Sodium 139 mmol/L (136-145) 10/11/20 05:42 Potassium 4.0 mmol/L (3.5-5.1) 10/11/20 05:42 Chloride 108 mmol/L (98-107) H 10/11/20 05:42 Carbon Dioxide 29 mmol/L (21-32) 10/11/20 05:42 Anion Gap 2.0 (3-11) L 10/11/20 05:42 BUN 12 mg/dl (7-18) 10/11/20 05:42 Creatinine 0.61 mg/dl (0.6-1.2) 10/11/20 05:42 Date of Service October 12, 2020 Assessment & Plan (1) Primary osteoarthritis of left knee: Plan: Postop day 2 status post left total knee arthroplasty. PT/OT protocols. Weightbearing as tolerated. DVT prophylaxis-aspirin p.o. twice daily, SCDs, ZARINA carlos. Pain management as written. DC planning-patient is planning for outpatient PT upon discharge. Plan for discharge to home today. Admission and Anticipated Discharge Date Admission Date: October 10, 2020 Subjective Postop day 2 Patient sitting up in bed and getting ready to eat her breakfast. States that she is having a little bit more soreness today and having more trouble doing SLRs. Discussed that that is par for the course and she should not worry. No other complaints today. Denies shortness of breath, chest pain, lightheadedness. Patient is hoping to go home today. Physical Exam Physical Exam: Melissa dressing is clean, dry, and intact. Calves are soft nontender. Neurovascular is intact. Toes are mobile. Results & Data ([facility]) Vital Signs (Past 12 Hours) Vital Signs Temp Pulse Resp BP Pulse Ox 10/12/20 07:22 36.4 C L 53 L 16 145/76 H 97 10/11/20 22:25 36.8 C 60 18 121/72 97 Total Time Total Time Spent Total Time Spent (In Minutes): 5 Discharge Plan Discharge Items Patient Disposition: Home - Self-Care Reason For Visit: Unilateral Primary Osteoarthritis, Left Knee Discharge Diagnosis: Osteoarthritis left knee Activity: Per Instructions section Weightbearing: Left weightbearing Weightbearing Comment: As tolerated with walker Non-emergency contact: Surgeon Call non-emergency contact if: your pain is not controlled, your temperature is above 101.5, your wound has increased redness and your wound has increased drainage Follow-up/Referrals: Raphael Renner MD [Surgeon] - 10/21/20 10:30 am (follow up in 2 weeks for wound check) Leslye Whittaker M.D. [Primary Care Provider] - Diet: Regular Addtl Attending Provider Instructions: ACTIVITY RECOMMENDATIONS: SELF CARE INSTRUCTIONS AFTER TOTAL KNEE REPLACEMENT A. You may need to continue a physical therapy program after discharge from the hospital. There are several options available to you. Your doctor will assist you in selecting the best one for you. 1. An out-patient facility 2 to 3 times a week for therapy or home therapy. 2. Continue working on all exercises taught to you in the hospital. Your goals should be to increase bending of your knee to 90 degrees and beyond and to fully straighten your knee. B. You may progress at your own pace from walking with a walker or crutches to a cane; then to no assistive devices. C. Make walking a part of your daily routine. Be up as much as comfortable with rest periods throughout the day. Rest with leg elevation is very important. Use the ice wrap frequently for the first 3-4 weeks. D. There are no restrictions on activities. You may ride in a car, shop, participate in fish hatchery laborer and all social activities. E. Wear the long elastic stockings (ZARINA hose) 20 hours a day for 2 weeks after surgery. They can be removed several times a day for laundering and for a bath. F. You may shower, no tub baths until cleared by your doctor. SPECIAL CARE INSTRUCTIONS: VERY IMPORTANT TO READ AND REVIEW A. There are a few signs you need to watch for after you are home. Call [facility] if you notice any of the followin. Increased severe knee pain. Some pain is expected especially when you exercise. 2. Increased swelling in your leg or knee; pain or swelling of the calf muscle in either lower leg. 3. Any fluid drainage from the incision. 4. Shortness of breath or chest pain. B. Please call [facility] at if you have any concerns or questions about your operation or recovery. The doctor or his nurse will return your call promptly. C. You must take antibiotics before dental work, bladder, bowel or other surgery. Your doctor will provide you with a permanent care to carry describing this precaution. IMPORTANT: * REMEMBER TO TAKE ASPIRIN, 81 MG, TWICE DAILY FOR 4 WEEKS UNLESS OTHERWISE DIRECTED. THIS IS YOUR BLOOD THINNER. * HIGH RISK PATIENTS MAY BE PRESCRIBED A STRONGER BLOOD THINNER. THIS WILL BE PROVIDED AT DISCHARGE. * CALL IF INCREASED PAIN, REDNESS, DRAINAGE OR FEVER GREATER THAT 101. * WEAR ZARINA HOSE 20 HOURS PER DAY FOR 2 WEEKS. * MELISSA Dressing - This is a large suction dressing covering your incision. This will help pull any excess drainage from the wound and allow your incision to heal properly. You may shower with this if you can keep the unit outside of the shower. If any bleeding or leakage is noted please call your doctor's office. This will remain on your incision for 7 days and then should be removed. This can be done yourself or by the home nursing staff if applicable. The entire unit is disposable once removed. Once removed, keep incision clean and dry. If redness or drainage is noted, please call your surgeon. . FOLLOW UP VISIT: If appointment is not already scheduled: Please call [facility] to make a follow-up appointment for 2 weeks after your surgery at . Stand-Alone Forms: My [facility], Opioid Pain Management, Smoking Cessation Medications and DC Order Prescriptions: New aspirin 81 mg Tablet,Delayed Release (Dr/Ec) 81 mg PO BID 30 Days Qty: 60 RF: 0 acetaminophen [Tylenol Extra Strength] 500 mg Tablet 1,000 mg PO Q8 14 Days Qty: 84 RF: 0 oxycodone 5 mg Tablet 5 mg PO Q4H MDD 6 PRN (Reason: pain) Qty: 30 RF: 0 Continued polyethylene glycol 3350 [Miralax] 17 gram Powder In Packet 17 g PO QAM RF: 0 omeprazole 40 mg Capsule,Delayed Release(Dr/Ec) 40 mg PO BID RF: 0 docusate sodium [Colace] 100 mg Capsule 100 mg PO QAM PRN (Reason: Constipation) RF: 0 diltiazem HCl [Cartia XT] 120 mg Capsule,Extended Release 24hr 120 mg PO QAM RF: 0 aqgotmrxupqy-heazqanb-hmlzye Tablet 1 tab PO QAM RF: 0 Restasis 0.05 % Dropperette 1 drp OPHTHALMIC (EYE) Q12H RF: 0 Refresh Optive Alberto-3 (PF) 0.5-1-0.5 % Dropperette 1 drp OPHTHALMIC (EYE) TID PRN (Reason: Dry Eye(S)) RF: 0 Caltrate 600 plus D 600 mg (1,500 mg)-800 unit Tablet,Chewable 1 tab PO QAM RF: 0 sodium chloride [Maggie 128] 5 % Ointment 1 applic OPHTHALMIC (EYE) HS RF: 0 Systane (PF) 0.4-0.3 % Dropperette 1 drp OPHTHALMIC (EYE) BID PRN (Reason: Dry Eyes) RF: 0 Gaviscon 80-14.2 mg Tablet,Chewable 1 tab PO UD PRN (Reason: Acid Reflux) RF: 0 Discontinued acetaminophen [Tylenol Extra Strength] 500 mg Capsule 500 mg PO Q6H PRN (Reason: Pain) RF: 0 aspirin [Aspir-81] 81 mg Tablet,Delayed Release (Dr/Ec) 81 mg PO QAM RF: 0 Discharge Orders: Discharge Order (Routine); Ordered 10/12/20 Ordered By: Rolando Abernathy/Other Patient Handouts: DVT Post Op Prevention Admission Data Admit Date/Time: 10/10/20 17:00 Attending Provider: Raphael Renner Admit Provider: Raphael Renner Primary Care Provider: Leslye Whittaker Other Providers: Gregg Vo Peter W Other Interventions: Discharge Summary Assessment (RN) Last Done: 10/12/20 09:48
== END 2020-10-12 12:02 | disposition home or self-care (01) ==
LOC: ASU 10:08 → 3E 10:08